=== PATIENT | female | born 1965 | race Caucasian/White ===

== ENCOUNTER → 2017-05-23 | Outpatient (CLI) | payer OTHER | LOC: CIMAGING 09:55 | PROVIDERS: ATTEND Family Medicine | DX: Z12.31 Encounter for screening mammogram for malignant neoplasm of breast (principal) | CPT/HCPCS: G0202 ==

== ENCOUNTER → 2017-05-25 | Outpatient (CLI) | payer OTHER | LOC: CIMAGING 13:13 | PROVIDERS: ATTEND Family Medicine | CPT/HCPCS: 76641-PO ==

== ENCOUNTER → 2017-11-06 | Outpatient (CLI) | payer OTHER | LOC: CIMAGING 11:38 | PROVIDERS: ATTEND Family Medicine | DX: M54.5 Low back pain (principal) | CPT/HCPCS: 72100-PO ==

== ENCOUNTER → 2018-07-01 | Outpatient (CLI) | payer OTHER | LOC: CIMAGING 08:09 | PROVIDERS: ATTEND Family Medicine | DX: Z12.31 Encounter for screening mammogram for malignant neoplasm of breast (principal) ==